=== PATIENT | female | born 1995 | race Caucasian/White ===

== ENCOUNTER 2016-11-08 18:02 | Emergency (ER) | payer OTHER ==
[~2016-11-08] VITALS: Ht 157.5 cm; Wt 68.0 kg
[2016-11-08 19:00] VITALS: BP 110/85
--- NOTE | 2016-11-08 19:18 | NUR ---
Patient ambulated to bed 06.
[2016-11-08] MEDS ORDERED: KETOROLAC 30 MG/ML VIAL IM ONE (19:35)
[2016-11-08] MEDS ORDERED: ACETAMINOPHEN/CODEINE 300/30MG 1 TAB PO ONE (19:35)
--- NOTE | 2016-11-08 19:37 | NUR ---
Patient will be moved to OF at this time.
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
--- NOTE | 2016-11-08 20:01 | NUR ---
Patient going to CT/XRAY via wheelchair per tech.
--- NOTE | 2016-11-08 20:15 | NUR ---
Patient back from CT/XRAY via wheelchair per tech.
[2016-11-08 21:00] VITALS: BP 118/75
--- NOTE | 2016-11-08 21:00 | NUR ---
Patient discharged with v/s stable. Written and verbal after care instructions given and explained. Patient alert, oriented and verbalized understanding of instructions. Ambulatory with steady gait. All questions addressed prior to discharge. ID band removed. Patient advised to follow up with PMD TOMORROW, OR RETURN TO ER IF CONDITION WORSENS. Rx of NAPROSYN given. Patient educated on indication of medication including possible reaction and side effects. Opportunity to ask questions provided and answered.
== END 2016-11-08 21:00 | disposition home or self-care (01) ==
LOC: MED 18:02
DX: S06.9X1A Unspecified intracranial injury with loss of consciousness of 30 minutes or less, initial encounter (principal); S80.01XA Contusion of right knee, initial encounter; W18.39XA Other fall on same level, initial encounter; Y93.89 Activity, other specified; Y92.59 Other trade areas as the place of occurrence of the external cause; Y99.8 Other external cause status
CPT/HCPCS: 70450; 73562; 81025; 96372; 99284; J1885

== ENCOUNTER 2022-03-03 19:39 | Emergency (ER) | payer OTHER ==
[~2022-03-03] VITALS: Ht 157.5 cm; Wt 72.6 kg
[2022-03-03 19:45] VITALS: BP 125/72
[2022-03-03 21:20] VITALS: BP 125/72
== END 2022-03-03 21:20 | disposition home or self-care (01) ==
LOC: MED 19:39
DX: S60.211A Contusion of right wrist, initial encounter (principal); X58.XXXA Exposure to other specified factors, initial encounter; Y93.89 Activity, other specified; Y92.89 Other specified places as the place of occurrence of the external cause; Y99.8 Other external cause status
CPT/HCPCS: 73110; 99283